=== PATIENT | female | born 1965 | race Two or more races ===

== ENCOUNTER 2024-01-09 14:38 | Emergency (ER) | payer OTHER ==
[~2024-01-09] VITALS: Ht 165.1 cm; Wt 68.0 kg
[2024-01-09] MEDS ORDERED: LEVOTHYROXINE25 MCG PO (15:13)
[2024-01-09] MEDS ORDERED: ORPHENADRINE CITRATE 30 MG/ML AMPUL IM STA (19:08)
[2024-01-09] MEDS ORDERED: DEXAMETHASONE 4 MG TABLET PO STA (19:08)
[2024-01-09] MEDS ORDERED: DEXAMETHASONE SODIUM PHOSPHATE 4 MG/ML VIAL ONE (19:14)
[2024-01-09] MEDS ORDERED: ORPHENADRINE CITRATE 30 MG/ML AMPUL ONE (19:14)
[2024-01-09] MEDS ORDERED: DEXAMETHASONE SODIUM PHOSPHATE 4 MG/ML VIAL IM STA (19:18)
== END 2024-01-09 20:11 | disposition home or self-care (01) ==
LOC: ER 14:39
DX: R52 Pain, unspecified (principal)